=== PATIENT | male | born 1990 | race Caucasian/White ===

== ENCOUNTER 2016-08-24 13:21 | Emergency (ER) | payer MEDICAID, OTHER ==
[2016-08-24 13:53] VITALS: RESP 16; TEMP 97.7
[2016-08-24] MEDS ORDERED: IBUPROFEN 600 MG TAB PO ONE ×2 (15:13→15:15)
[2016-08-24] MEDS ORDERED: OXYCODONE/APAP 5/325 TAB PO ONE (15:26)
--- NOTE | 2016-08-24 15:58 | EDPHY ---
H & P Smoking Status: Never smoked Time Seen by Provider: 08/24/16 15:17 HPI/ROS: CHIEF COMPLAINT: Left ankle injury HISTORY OF PRESENT ILLNESS: This is a 26-year-old male presenting to the emergency department complaining of a twisting left ankle 30 minutes to an hour prior to arrival. Patient states he was looking for his cat and he was on a 3 foot stone went to jump down landing on inverted left ankle. Increased pain with weight-bearing, positive swelling. Denies any other injuries REVIEW OF SYSTEMS: Constitutional: No fever, no chills. Eyes: No blurred vision Cardiovascular: No chest pain, no palpitations. Respiratory: No cough, no shortness of breath. Gastrointestinal: No abdominal pain, no vomiting. Musculoskeletal: No back pain. Left ankle pain with swelling Skin: No rashes. Neurological: No headache. (Rachel Olivier) Physical Exam: General Appearance: Alert and no distress. Eyes: Pupils equal and round no injection. Respiratory: Chest is nontender, lungs are clear to auscultation. Cardiac: regular rate and rhythm Gastrointestinal: Abdomen is soft and nontender, no masses, bowel sounds normal. Musculoskeletal: Vertebral cervical spine nontender on palpation, full range of motion Extremities: Left ankle swelling, lateral malleolus tender on palpation. No obvious deformity positive CMS intact Skin: No rashes or lesions. (Rachel Olivier) Constitutional: Initial Vital Signs Temperature (C) 36.5 C 08/24/16 13:51 Heart Rate 86 08/24/16 13:51 Respiratory Rate 16 08/24/16 13:51 Blood Pressure 111/89 H 08/24/16 13:51 O2 Sat (%) 98 08/24/16 13:51 O2 Delivery Mode Room Air Allergies/Adverse Reactions: No Known Allergies Allergy (Unverified 02/21/14 02:42) Home Medications: Medication Instructions Recorded Miscellaneous Medical Supply [NO 1 ea [facility] MEDS] Medical Decision Making ED Course/Re-evaluation: Discussed ED plan of care: X-ray left ankle, ice pack, and pain medicine 1515: Discussed x-ray no acute fracture seen no joint effusion, soft tissue swelling seen. 1600: Ankle stirrup splint placed, discussed using crutches as needed. Discharge home---> stable, discussed discharge instructions with patient (Rachel Olivier) Differential Diagnosis: Other differential diagnosis considered but not limited to ankle dislocation, malleolar fracture, and joint effusion (Rachel Olivier) Other Provider: The patient wasevaluatedand managed by themidlevel provider. My co- signature indicates that Kehinde reviewed this chart and I agree with the findings and plan of care asdocumented. I am the secondary supervising physician. (Anastasia Valdivia) - Data Points Medications Given: Discontinued Medications Ibuprofen (Motrin) 600 mg PO EDNOW ONE Stop: 08/24/16 15:14 Last Admin: 08/24/16 15:16 Dose: 600 mg Oxycodone/Acetaminophen (Percocet 5/325) 2 tab PO EDNOW ONE Stop: 08/24/16 15:27 Last Admin: 08/24/16 15:37 Dose: 2 tab Departure - Departure Disposition: Home, Routine, Self-Care Clinical Impression: Ankle sprain Condition: Good Instructions: Ankle Sprain (ED), Ankle Stirrup Splint (ED) Additional Instructions: 1. Elevate, ice several times daily 2. Decrease prolonged pressure for the next 5-7 days 3. Wear stirrup splint for comfort and support for the next 7-10 days 4. Ibuprofen 600 mg every 6-8 hours 5. Follow up with your primary care provider as needed in 7-10 days Referrals: Denice Gray PA [Primary Care Provider] - As per Instructions
[2016-08-24 16:08] VITALS: BP 154/83; PULSE 76; O2SAT 96
== END 2016-08-24 16:08 | disposition home or self-care (01) ==
DX: S93.402A Sprain of unspecified ligament of left ankle, initial encounter (principal); X58.XXXA Exposure to other specified factors, initial encounter; Y99.8 Other external cause status; Y93.39 Activity, other involving climbing, rappelling and jumping off
CPT/HCPCS: L4350